=== PATIENT | female | born 1955 | race Caucasian/White ===

== ENCOUNTER 2020-08-24 10:47 | Outpatient (NON) | payer OTHER, SELFPAY ==
[2020-08-24 23:56] LABS: SARS-CoV-2 RNA PCR Negative
== END 2020-08-24 10:48 ==
PROVIDERS: PCP Student in an Organized Health Care Education/Training Program; Visit Provider Student in an Organized Health Care Education/Training Program
DX: Z20.828 Contact with and (suspected) exposure to other viral communicable diseases (principal); R05 Cough; R53.83 Other fatigue
CPT/HCPCS: 87635; C9803; U0003

== ENCOUNTER 2020-08-25 13:31 | Outpatient (CLI) | payer OTHER, SELFPAY ==
--- NOTE | ~2020-08-25 | US_ITS ---
EXAMINATION: US right upper quadrant DATE: 08/25/2020 14:11 INDICATION: Right upper quadrant abdominal pain. TECHNIQUE: Multiple grayscale and Doppler ultrasound images of the abdomen were obtained. COMPARISON: None FINDINGS: The visualized portions of the head, body, and tail of the pancreas are normal. There is di ffuse hepatic steatosis. No liver surface nodularity. There is normal flow in main portal vein. The g allbladder is normal in size. No gallstones or gallbladder wall thickening. There was no sonographic Amador sign. The common duct is normal and measures 6 mm. IMPRESSION: 1. Diffuse hepatic steatosis. Reviewed, dictated and finalized at location A.
[2020-08-25 14:45] LABS: Hemoglobin 17.2 g/dL (12.0-15.0); Mean Corpuscular HGB Conc 31.9 g/dl (32-36); Mean Corpuscular Hemoglobin 29.2 pg (26-34); Mean Corpuscular Volume 91.7 fl (80-100); Mean Platelet Volume 10.3 fl (7.4-10.4); Platelet Count Result 253 k/mm3 (150-375); Red Blood Count 5.89 M/mm3 (4.2-5.4); Red Cell Distribution Width 13.2 % (11.5-14.5); White Blood Count 20.2 K/mm3 (4.5-10.0)
[2020-08-25 14:56] LABS: Hemoglobin A1C 9.4 % (<5.7)
[2020-08-25 15:00] LABS: Alanine Aminotransferase 23 U/L (4-35); Alkaline Phosphatase 105 U/L (38-126); Anion Gap 6 mmol/L (8-16); Aspartate Amino Transferase 28 U/L (14-36); Bilirubin,Total 0.8 mg/dL (0.2-1.3); Blood Urea Nitrogen 17 mg/dL (7-17); Calcium 9.2 mg/dL (8.4-10.2); Carbon Dioxide 27 mmol/L (22-30); Chloride 104 mmol/L (98-107); Cholesterol 160 mg/dL (0-200); Estimated Glomerular Filt Rate > 60; Glucose 189 mg/dL (65-105); HDL Direct 42 mg/dL; Potassium 4.2 mmol/L (3.4-5.0); Sodium 137 mmol/L (137-145); Triglycerides 108 mg/dL (<150)
[2020-08-25 15:11] LABS: LDL Cholesterol Direct 104 mg/dL
[2020-08-25 16:16] LABS: Eosinophils Percent Manual 2 % (0-4); Lymphocytes Absolute Manual 8.28 K/mm3 (1.1-4.5); Monocytes Percent Manual 1 % (3-9); Neutrophils Percent Manual 56 % (46-73); Platelet Estimate Adequate (Adequate); Total Cells Counted 100
[2020-08-25 16:38] LABS: Vitamin D 25 Hydroxy 20.4 ng/mL
[2020-08-25 17:40] LABS: Free T4 Free Thyroxine Reflex 1.39 ng/dL (0.78-2.19)
[2020-08-25 19:16] LABS: Total Triiodothyronine (T3) 1.37 NG/ML (0.97-1.69)
[2020-08-26 02:38] LABS: Microalbumin Urine Random 48.4 mg/L (0-16.7)
[2020-08-26 02:50] LABS: Creatinine Urine 347.1 mg/dL; MALB Creatinine Ratio 13.9 mg/g (0-30)
== END 2020-08-25 13:32 | disposition home or self-care (01) ==
PROVIDERS: PCP Student in an Organized Health Care Education/Training Program; Visit Provider Student in an Organized Health Care Education/Training Program
DX: R10.11 Right upper quadrant pain (principal); Z13.220 Encounter for screening for lipoid disorders; E11.9 Type 2 diabetes mellitus without complications; K76.0 Fatty (change of) liver, not elsewhere classified; Z79.4 Long term (current) use of insulin; Z13.29 Encounter for screening for other suspected endocrine disorder; Z13.228 Encounter for screening for other metabolic disorders; Z13.0 Encounter for screening for diseases of the blood and blood-forming organs and certain disorders involving the immune mechanism
CPT/HCPCS: 36415; 76705; 80053; 80061; 82043; 82306; 83036; 84439; 84443; 84480; 85025

== ENCOUNTER 2021-01-23 14:35 | Outpatient (CLI) | payer OTHER, SELFPAY ==
--- NOTE | ~2021-01-23 | CT_ITS ---
EXAMINATION: CT brain wo con EXAM DATE: 01/23/2021 14:58 INDICATION: New onset headache at the vertex. History CLL. Dizziness. Blurry vision. Nausea. TECHNIQUE: Spiral CT of the head was performed without contrast. Axial, coronal and sagittal images were reviewed. The dose-length product (DLP) for this examination was 529.67 mGy-cm. The exposure w as tailored according to patient size, and iterative reconstruction (ASIR) was used as additional dos e reduction technique. There is no prior study for comparison. FINDINGS: There is no acute intraparenchymal hemorrhage. No evidence of intraparenchymal brain mass lesion. No evidence of acute infarction. Please note that initial head CT has limited sensitivity f or small or acute infarctions. There is mild periventricular and subcortical hypodensity, nonspecific but probably related to small vessel ischemic disease. There is intracranial carotid arteriosclero sis. There are no extra-axial collections. There is no mass effect or midline shift. The orbits ar e unremarkable. Soft tissue is unremarkable. The visualized sinuses and mastoid air cells are well aerated. IMPRESSION: 1. No acute intracranial findings. 2. Chronic age related findings. Reviewed, dictated and finalized at location A.
[2021-01-23 15:39] LABS: Basophils Absolute Auto 0.1 K/mm3 (0.0-0.1); Basophils Percent Auto 0.5 % (0.2-1.2); Eosinophils Absolute Auto 0.8 K/mm3 (0-0.3); Hematocrit 50.1 % (37.0-47.0); Hemoglobin 16.4 g/dL (12.0-15.0); Immature Granulocyte Absolute 0.05 K/mm3 (0.00-0.031); Immature Granulocyte Percent A 0.3 % (0-0.5); Lymphocytes Absolute Auto 9.99 K/mm3 (0.9-3.2); Lymphocytes Percent Auto 53.8 % (18.3-44.2); Mean Corpuscular HGB Conc 32.7 g/dl (32-36); Mean Corpuscular Hemoglobin 28.7 pg (26-34); Mean Corpuscular Volume 87.6 fl (80-100); Mean Platelet Volume 10.5 fl (7.4-10.4); Monocytes Absolute Auto 0.9 K/mm3 (0.1-0.6); Monocytes Percent Auto 4.6 % (2.6-8.5); Neutrophils Absolute Auto 6.9 K/mm3 (1.3-6.7); Neutrophils Percent Auto 36.8 % (45.5-73.1); Platelet Count Result 297 k/mm3 (150-375); Red Blood Count 5.72 M/mm3 (4.2-5.4); Red Cell Distribution Width 13.4 % (11.5-14.5); White Blood Count 18.6 K/mm3 (4.5-10.0)
[2021-01-23 15:51] LABS: Alanine Aminotransferase 16 U/L (4-35); Albumin Level 3.9 g/dL (3.5-5.1); Alkaline Phosphatase 103 U/L (38-126); Anion Gap 7 mmol/L (8-16); Aspartate Amino Transferase 22 U/L (14-36); Bilirubin,Total 0.4 mg/dL (0.2-1.3); Blood Urea Nitrogen 11 mg/dL (7-17); Calcium 8.8 mg/dL (8.4-10.2); Carbon Dioxide 26 mmol/L (22-30); Chloride 104 mmol/L (98-107); Estimated Glomerular Filt Rate > 60; Glucose 145 mg/dL (65-105); Potassium 3.8 mmol/L (3.4-5.0); Sodium 137 mmol/L (137-145)
[2021-01-23 16:18] LABS: Erythrocyte Sedimentation Rate 4 mm/hr (0-20)
== END 2021-01-23 14:36 | disposition home or self-care (01) ==
PROVIDERS: PCP Student in an Organized Health Care Education/Training Program; Visit Provider Student in an Organized Health Care Education/Training Program
DX: R51.9 Headache, unspecified (principal); E11.9 Type 2 diabetes mellitus without complications; Z79.4 Long term (current) use of insulin
CPT/HCPCS: 36415; 70450; 80053; 83036; 85025; 85652

== ENCOUNTER 2021-06-25 08:18 | Emergency (ER) | payer OTHER, SELFPAY ==
--- NOTE | ~2021-06-25 | XR_ITS ---
XR abdomen/kub 1V DATE: 06/25/2021 09:06 INDICATION: Vomiting and diarrhea TECHNIQUE: AP view COMPARISON: 08/20/2017 KUB 08/25/2020 right upper quadrant abdominal ultrasound FINDINGS: No evidence of bowel obstruction. The psoas shadows are intact. No visceromegaly. No signif icant abnormal calcification. IMPRESSION: No significant abnormality Reviewed, dictated and finalized at Location A. Reviewed, dictated and finalized at location A. IMPRESSION: No significant abnormality
[2021-06-25 08:28] VITALS: BP 148/85; PULSE 66; RESP 18; TEMP 36.2; O2SAT 97
[2021-06-25 08:30] VITALS: BP 148/85; PULSE 66; RESP 18; TEMP 36.2; O2SAT 97
--- NOTE | 2021-06-25 08:46 | ED.GENADULT ---
HPI - General Adult General Chief complaint: Nausea/Vomiting/Diarrhea Stated complaint: headache/ nausea /vomiting Time Seen by Provider: 06/25/21 08:46 Source: patient and RN notes reviewed Mode of arrival: ambulatory Limitations: no limitations History of Present Illness HPI narrative: 65-year-old female presents with complaints of nausea, vomiting, diarrhea, decreased appetite, and intermittent headache (not the worst of her life) for 1 day. ?Mouna reports approximately noon on 06/24/21 she started having nausea, vomiting, diarrhea, decreased appetite, and intermittent headache which is consistent now. ?Attempted to increase fluids without relief. ?Nausea with 2 episodes of emesis this morning and 1 on 06/24/21 without blood, last episode today at 07:00 AM. ?Diarrhea 3 episodes today and 4 episodes on 06/24/21 without blood, last today at 04:00. ?No abdominal pain or cramping. ?Exacerbating factors consist of eating and drinking. Denies fever or chills. ?Denies dizziness, back pain, and dysuria. ?Rhinorrhea and congestion. ?Remains active. ?The patient reports she has not been diagnosed with COVID-19. ?The patient reports she received 1 [email or web address] COVID-19 vaccine, awaiting 2 one in a week. ?The patient reports she is not waiting for the results of a COVID-19 lab test. ?The patient reports she does not have weakness, fatigue, or myalgia. ?The patient reports she does not have a new or worsening cough or shortness of breath. ?Denies chest pain. ?The patient reports she does not have any loss of taste or smell and sore throat. ?Denies recent traveling. ?Denies concerns for COVID-19 or exposures. ?At this time, the patient is not suspected of having COVID-19.?? Some parts of this dictation were generated by voice recognition software and may contain typographical and/or grammatical inaccuracies. Related Data Home Medications Medication Instructions Recorded Confirmed bupropion HCl 300 mg PO DAILY 06/25/21 06/25/21 fluoxetine 20 mg PO DAILY 06/25/21 06/25/21 insulin glargine U-300 conc 1 unit SUBCUT DAILY 06/25/21 06/25/21 [Toujeo Max U-300 SoloStar] pregabalin 75 mg PO DAILY 06/25/21 06/25/21 Allergies Allergy/AdvReac Type Severity Reaction Status Date / Time cephalexin Allergy Unknown Difficulty Verified 06/25/21 08:40 Breathing Penicillins Allergy Unknown Rash Verified 06/25/21 08:23 CEPHALEXIN MONOHYDRATE Allergy Mild Difficulty Uncoded 06/25/21 08:40 Breathing Review of Systems Review of Systems: CONSTITUTIONAL: Denies fever, chills, sweats. EYES: Denies visual changes, redness, discharge. ENT: Complains of rhinorrhea, congestion. Denies sore throat, otalgia. CARDIOVASCULAR: Denies chest pain, palpitations, edema. RESPIRATORY: Denies dyspnea, wheezing, cough. GASTROINTESTINAL: Denies abdominal pain, vomiting. Complains of diarrhea, nausea, and decreased appetite. GENITOURINARY: Denies dysuria, hematuria, abnormal discharge. SKIN: Denies rash or itching. MUSCULOSKELETAL: Denies acute back pain, joint pain, or myalgia. NEUROLOGIC: Denies numbness or focal weakness. PSYCHIATRIC: Denies anxiety or depression. All systems reviewed & are unremarkable except as noted in HPI and below. [facility] Past Medical History Medical History (Updated 06/25/21 @ 09:34 by NIRALI Rodriguez) Anxiety CLL (chronic lymphocytic leukemia) Depression Diabetes Hypertension Surgical History Surgical History (Updated 06/25/21 @ 10:08 by NIRALI Rodriguez) History of carpal tunnel surgery History of foot surgery RT tarsal tunnel surgery History of hysterectomy History of surgery on upper extremity ulnar nerve release History of tonsillectomy Family History Family History Father Hypertension Family history of elevated blood lipids Family history of diabetes mellitus in first degree relative Patient's father is Mother Family history of d
[2021-06-25] MEDS: ONDANSETRON HCL ODT 4 MG TABLET PO (09:12)
[2021-06-25 09:18] LABS: Glucose Point of Care 134 mg/dl (65-105)
--- NOTE | 2021-06-25 09:38 | PCDIET ---
0915- accucheck is 134mg/dL
[2021-06-25] MEDS: ONDANSETRON INJ 4 MG/2 ML VIAL IM (09:42)
[2021-06-27 01:23] LABS: SARS-CoV-2 RNA PCR Negative
== END 2021-06-25 09:58 | disposition home or self-care (01) ==
PROVIDERS: Emergency Provider Nurse Practitioner Family; PCP Student in an Organized Health Care Education/Training Program
DX: K52.9 Noninfective gastroenteritis and colitis, unspecified (principal); Z20.822 Contact with and (suspected) exposure to COVID-19; F41.9 Anxiety disorder, unspecified; F32.9 Major depressive disorder, single episode, unspecified; E11.9 Type 2 diabetes mellitus without complications; I10 Essential (primary) hypertension; C91.10 Chronic lymphocytic leukemia of B-cell type not having achieved remission
CPT/HCPCS: 74018; 81003; 82948; 96372; 99213; A9270; C9803; G0463; J2405; U0003; U0005

== ENCOUNTER 2024-02-26 12:24 | Outpatient (CLI) | payer MEDICARE, SELFPAY ==
--- NOTE | ~2024-02-26 | DEXA_ITS ---
Bone Density Report Name: NEWTON WILLIS Age: 68 Sex: Female Ethnicity: White Date of : 1955 Indication: postmenopausal; screening for osteoporosis; parental hip fracture; hysterectomy; Referring Provider: Alix, Gaston Study: Bone densitometry was performed. Exam Date: February 26, 2024 Accession number: [id number] Bone Density: Region BMD T-score Z-score Classification AP Spine (L1, L2, L3) 0.978 -0.4 1.5 Normal Femoral Neck (Left) 0.626 -2.0 -0.4 Osteopenia Total Hip (Left) 0.946 0.0 1.3 Normal Femoral Neck (Right) 0.637 -1.9 -0.3 Osteopenia Total Hip (Right) 0.938 0.0 1.3 Normal Total Hip Mean 0.942 0.0 1.3 Normal World Health Organization criteria for BMD impression classify patients as: Normal (T-score at or above -1.0), Osteopenia (T-score between -1.0 and -2.5), or Osteoporosis (T-score at or below -2.5). 10-year Fracture Risk(1): Major Osteoporotic Fracture 17% Hip Fracture 1.7% Reported Risk Factors: [place] (), Neck BMD=0.626, BMI=39.3, parental fracture (1) FRAX(R) Version 3.08. Fracture probability calculated for an untreated patient. Fracture probability may be lower if the patient has received treatment. Clinical Information Provided by Patient: Parent has had a hip fracture Has used the following medications: Vitamin D Has the following medical conditions: Hysterectomy, CLL cancer currently, no treatment Patient maximum height was 62.5 Menopause Age: 31 No regular weight bearing exercise Drinks caffeinated beverages Onset of menses at age 15.5 Number of children 0 Impression: The patient has low bone mass, based on the Left Femoral Neck T-score. The patient has an estimated ten-year risk of hip fracture of 1.7% and an estimated ten-year risk of major fracture of 17%, based on the WHO FRAX algorithm. The patient has risk factors, including: parental hip fracture. Discussion: BONE DENSITY IS LOW AT ONE OR MORE SKELETAL SITES. This patient's lowest T-score is low at one or more skeletal sites. It meets the World Health Organization's (WHO) criteria for ?low bone mass? (T-score between -1.0 and -2.5). The patient's 10-year risk of fracture as calculated by FRAX is less than the threshold where pharmacological therapy is recommended by the National Osteoporosis Foundation (NOF). However, all treatment decisions require clinical judgment and consideration of individual patient factors, including patient preferences, comorbidities, previous drug use, risk factors not captured in the FRAX model (e.g., frailty, falls, vitamin D deficiency, increased bone turnover, interval significant decline in bone density) and possible under or overestimation of fracture risk by FRAX. The patient should follow a healthful lifestyle (good nutrition with adequate calcium and lawson
--- NOTE | ~2024-02-26 | MM_ITS ---
EXAMINATION: MM screening belen BI w eliza HISTORY: Screening mammogram TECHNIQUE: Craniocaudal and mediolateral oblique 3-D tomosynthesis images were obtained and synthetic 2-D images were generated. CAD analysis was submitted and interpreted. COMPARISON: 06/28/2011 bilateral screening mammogram BREAST PARENCHYMAL COMPOSITION: The breasts are almost entirely fatty. FINDINGS: Bilateral circumscribed probable intramammary lymph nodes, more numerous on the left, most present on 06/28/2011. There is no evidence of suspicious mass, calcification, or architectural distor tion to suggest malignancy in either breast. There has been no suspicious interval change. IMPRESSION: 1. No mammographic evidence of malignancy. 2. Recommend routine screening mammography in one year. BI-RADS Category 2: Benign finding(s). Reviewed, dictated and finalized at location A.
== END 2024-02-26 12:25 ==
PROVIDERS: PCP Student in an Organized Health Care Education/Training Program; Visit Provider Student in an Organized Health Care Education/Training Program
DX: Z12.31 Encounter for screening mammogram for malignant neoplasm of breast (principal); Z78.0 Asymptomatic menopausal state; M85.80 Other specified disorders of bone density and structure, unspecified site; M85.852 Other specified disorders of bone density and structure, left thigh; M85.851 Other specified disorders of bone density and structure, right thigh
CPT/HCPCS: 77063; 77067; 77080

== ENCOUNTER 2024-06-16 04:38 | Inpatient (IN) | payer MEDICARE, SELFPAY ==
[2024-06-16 04:45] VITALS: BP 140/97; PULSE 93; RESP 17; TEMP 36.7; O2SAT 97
[2024-06-16 04:50] VITALS: BP 140/97; PULSE 93; RESP 17; TEMP 36.7; O2SAT 97
--- NOTE | 2024-06-16 04:54 | ED.SKABFB ---
HPI - Skin/Abscess/Foreign Bdy General Chief complaint: Skin/Abscess/Foreign Body Stated complaint: skin redness, insect bite on back Time Seen by Provider: 06/16/24 04:45 History of Present Illness HPI narrative: Patient noticed yesterday that she had a painful blister to her right back, she put a Band-Aid on it, and was planning on trying to your doctor this morning when she looked in the mirror and noticed that she had a reddish rash to her chest. No recent medications, foods or other exposures Related Data Home Medications Medication Instructions Recorded Confirmed bupropion HCl 300 mg 24 hr tablet, 300 mg PO DAILY 06/25/21 06/25/21 extended release fluoxetine 20 mg capsule 20 mg PO DAILY 06/25/21 06/25/21 insulin glargine U-300 conc 300 1 unit subcut DAILY 06/25/21 06/25/21 unit/mL (3 mL) subcutaneous pen (Toujeo Max U-300 SoloStar) pregabalin 75 mg capsule 75 mg PO DAILY 06/25/21 06/25/21 Allergies Allergy/AdvReac Type Severity Reaction Status Date / Time cephalexin Allergy Unknown Difficulty Verified 06/16/24 04:52 Breathing Penicillins Allergy Unknown Rash Verified 06/16/24 04:52 CEPHALEXIN MONOHYDRATE Allergy Mild Difficulty Uncoded 06/16/24 04:52 Breathing Review of Systems Review of Systems: CONST: No fever. HEENT: No sore throat C/V: No chest pain RESP: No cough GI: No nausea vomiting : No dysuria. M/S: No joint pain. SKIN: All over body rash, and painful blister that had popped on her right back NEURO: [No headache or focal numbness or weakness] PSYCH: [No depression] [facility] Past Medical History Medical History (Updated 06/16/24 @ 07:01 by Klaudia Sen MD) Anxiety CLL (chronic lymphocytic leukemia) Depression Diabetes Hypertension Surgical History Surgical History (Updated 06/25/21 @ 10:08 by NIRALI Rodriguez) History of carpal tunnel surgery History of foot surgery RT tarsal tunnel surgery History of hysterectomy History of surgery on upper extremity ulnar nerve release History of tonsillectomy Family History Family History Father Hypertension Family history of elevated blood lipids Family history of diabetes mellitus in first degree relative Patient's father is Mother Family history of diabetes mellitus in first degree relative Sibling Family history of coronary artery disease, Onset Age: 55 Patient's brother is Social History Social History (Updated 06/25/21 @ 09:08 by NIRALI Rodriguez) Smoking status: Never smoker Tobacco type: cigarettes Second hand tobacco smoke exposure: No Alcohol intake: never Substance use: never Substance use type: does not use Living arrangements: alone Additional living arrangements comments: spouse in February of 2021 Occupation/Education: occupation Gender identity (if verbalized by the patient): Female Sexual Orientation (if Verbalized by the Patient): Straight or Heterosexual Exam Narrative: EXAMINATION OF ORGAN SYSTEMS/BODY AREAS: Constitutional: Vital signs per nursing GENERAL:[No acute distress, non-toxic appearing.] HEAD: Normal with no signs of head trauma. EYES: EOMI, conjunctiva normal ENT: No ulcers to membranes LUNGS: Nonlabored breathing. HEART: [Regular rate and rhythm] ABD: [Soft], [nontender to palpation] EXT: Normal range of motion SKIN: 7cm blister inside 14cm area of induration/erythema/tenderness. Diffuse erythematous rash over entire trunk and upper bilateral legs NEURO: [Alert and oriented x 3. No gross focal sensory or strength deficits.] PSYCH: Normal affect Course Vital Signs Vital signs: Vital Signs Temperature 98.1 F 06/16/24 04:45 Pulse Rate 93 06/16/24 04:45 Respiratory Rate 17 06/16/24 04:45 Blood Pressure 140/97 H 06/16/24 04:45 Pulse Oximetry 97 06/16/24 04:45 Oxygen Delivery Room Air 06/16/24
[2024-06-16] MEDS: CLINDAMYCIN 600 MG/D5W 50 ML 600 MG/50 ML PIGGYBACK 100 MG IVPB (05:37)
[2024-06-16 05:43] LABS: Basophils Percent Auto 0.2 % (0.2-1.2); Eosinophils Percent Auto 5.1 % (0-4.4); Hematocrit 48.7 % (37.0-47.0); Hemoglobin 15.7 g/dL (12.0-15.0); Immature Granulocyte Percent A 0.5 % (0-0.5); Lymphocytes Absolute Auto 4.51 K/mm3 (0.9-3.2); Mean Corpuscular HGB Conc 32.2 g/dl (32-36); Mean Corpuscular Hemoglobin 29.3 pg (26-34); Mean Corpuscular Volume 90.9 fl (80-100); Mean Platelet Volume 10.4 fl (7.4-10.4); Monocytes Absolute Auto 0.7 K/mm3 (0.1-0.6); Monocytes Percent Auto 3.6 % (2.6-8.5); Neutrophils Absolute Auto 13.3 K/mm3 (1.3-6.7); Neutrophils Percent Auto 67.6 % (45.5-73.1); Platelet Count Result 226 k/mm3 (150-375); Red Blood Count 5.36 M/mm3 (4.2-5.4); White Blood Count 19.6 K/mm3 (4.5-10.0)
[2024-06-16 05:55] LABS: Lactic Acid Reflex 1.7 mmol/L (0.7-2.0)
[2024-06-16 05:58] LABS: Alanine Aminotransferase 15 U/L (6-35); Albumin Level 4.1 g/dL (3.5-5.1); Alkaline Phosphatase 88 U/L (38-126); Anion Gap 10 mmol/L (4-12); Aspartate Amino Transferase 19 U/L (14-36); Bilirubin,Total 1.2 mg/dL (0.2-1.3); Blood Urea Nitrogen 12 mg/dL (7-17); Calcium 8.5 mg/dL (8.4-10.2); Carbon Dioxide 27 mmol/L (22-30); Chloride 100 mmol/L (98-107); Estimated CRCL calculation 54 ml/min; Estimated Glomerular Filt Rate 55; Glucose 165 mg/dL (65-110); Potassium 3.7 mmol/L (3.4-5.0); Sodium 137 mmol/L (137-145)
[2024-06-16 06:07] LABS: CRP 11.9 mg/dL (<1.0)
[2024-06-16 06:11] LABS: Procalcitonin 0.3 ng/mL
[2024-06-16 06:21] LABS: Erythrocyte Sedimentation Rate 13 mm/hr (0-20)
[2024-06-16 06:22] VITALS: BP 121/84; PULSE 77; RESP 18; O2SAT 100
[2024-06-16] MEDS: AZTREONAM 2 GM in SODIUM CHLORIDE 0.9% IV 100 ML 200 ML IVPB ×2 (07:10→13:42)
[2024-06-16 08:06] VITALS: BP 145/67; RESP 18; O2SAT 100
--- NOTE | 2024-06-16 08:15 | PC.NURSE ---
This patient, Mouna Lynch, was admitted to [facility] Surg Room 317-01. Patient/family oriented to hospital policies and general routines including ID bracelet, bed and alarms, visiting hours, pain management, procedures, bathroom and other care routines, personal items, smoking policy, room service/diet, and visiting hours. Information on how to activate the Rapid Response Team has been discussed. Patient/Family are encouraged to report perceived risks to care and to ask questions if they do not understand what they are told or what they should do.
[2024-06-16 08:18] VITALS: BMI 39.4
[2024-06-16] MEDS: VANCOMYCIN 1,500 MG/NS 500 ML 1,500 MG/500 ML BAG 250 MG IVPB (10:19)
--- NOTE | 2024-06-16 11:23 | PM.IMHP ---
H&P: HPI History of Present Illness Date/Time: 06/16/24 11:23 Chief Complaint: Skin redness, insect bite on back Narrative: This is a 68-year-old female with a significant past medical history of anxiety, CLL, depression, diabetes, hypertension who presented to the hospital with painful blister to her right back which is likely an insect bite and noticed a red rash that was wrapping around from her back to her chest/ abdomen. Patient states that she noticed some pain and burning yesterday to her back and the area was red. She does not recall being bit by any specific bug/spider. She denies being bit by a mosquito or been around wooded areas for ticks. She states in the middle of the night last night she noticed some redness to her chest and felt her back again where she felt a blister formed. When she woke up she noticed that the redness extended from her back to her abdomen chest and upper arms and that is when she decided to come to the ED for further evaluation. Patient reports erythema, warmth to her right lower back, blister that had popped through the night. Patient denies any fever, chills, nausea, vomiting, diarrhea, chest pain, shortness a breath, abdominal pain. On examination her redness extends from her back to her abdomen, upper arms and chest. Workup in the hospital include labs which showed a white blood cell count of 19.6, hemoglobin 15.7, ESR 13, EGFR 55, lactic acid was normal at 1.7, liver enzymes are normal, C reactive protein 11.9, procalcitonin 0.3. Blood cultures were obtained and are pending. Patient was given Aztreonam, vancomycin, and clindamycin while in the ED. Review of Systems Review of Systems: All systems reviewed & are unremarkable except as noted in HPI and below Constitutional: Constitutional: Reports as per HPI and Reports no additional constitutional complaints Eyes: Eyes: Reports as per HPI and Reports no additional eye complaints ENT: Reports system reviewed and no additional complaints, except as documented and Reports as per HPI Cardiovascular: Cardiovascular: Reports as per HPI and Reports no additional cardiovascular complaints Respiratory: Respiratory: Reports as per HPI and Reports no additional respiratory complaints Gastrointestinal: Gastrointestinal: Reports as per HPI and Reports no additional gastrointestinal complaints Genitourinary: Genitourinary: Reports no additional female genitourinary complaints and Reports as per HPI Musculoskeletal: Musculoskeletal: Reports no additional musculoskeletal complaints and Reports as per HPI Integumentary/Breasts: Skin/Breast: Reports system reviewed and no additional complaints, except as docu and Reports as per HPI Neurologic: Reports system reviewed and no additional complaints, except as documented and Reports as per HPI Psychiatric: Psychiatric: Reports no additional psychiatric complaints and Reports as per HPI [facility] Past Medical History Medical History (Updated 06/16/24 @ 11:40 by Anne Hawk APRN) Anxiety CLL (chronic lymphocytic leukemia) Depression Diabetes Hypertension Surgical History Surgical History History of carpal tunnel surgery History of foot surgery RT tarsal tunnel surgery History of hysterectomy History of surgery on upper extremity ulnar nerve release History of tonsillectomy Family History Family History Father Family history of elevated blood lipids Family history of diabetes mellitus in first degree relative Patient's father is Hypertension Mother Family history of diabetes mellitus in first degree relative Sibling Patient's brother is Family history of coronary artery disease, Onset Age: 55 Sibling Heart disease Patient's brother is Social History Social History Smo
[2024-06-16] MEDS: HYDROcodone/acetaminophen (*CRX) 5-325 MG TABLET 1 TAB PO ×3 (11:45→22:53)
[2024-06-16 11:54] LABS: Glucose Point of Care 120 mg/dl (65-105)
[2024-06-16 13:56] VITALS: BP 132/49; PULSE 71; RESP 18; TEMP 36.7; O2SAT 94
[2024-06-16] MEDS: ceFAZolin 1 GM/NS 50 ML 1 GM/50 ML BAG IVPB ×2 (14:07→21:42)
[2024-06-16 16:27] LABS: Glucose Point of Care 160 mg/dl (65-105)
[2024-06-16] MEDS: methylPREDNISolone SOD SUCC 125 MG VIAL 60 MG IV PUSH ×2 (17:01→23:29)
[2024-06-16 19:45] VITALS: BP 140/50; PULSE 77; RESP 18; TEMP 36.9; O2SAT 95
[2024-06-16 20:28] LABS: Glucose Point of Care 237 mg/dl (65-105)
[2024-06-16] MEDS: INSULIN ASPART (*BKC) 100 UNITS/ML SUB-Q (21:43)
[2024-06-17] MEDS: methylPREDNISolone SOD SUCC 125 MG VIAL 60 MG IV PUSH ×2 (05:28→17:56)
[2024-06-17] MEDS: ceFAZolin 1 GM/NS 50 ML 1 GM/50 ML BAG IVPB ×3 (05:33→21:03)
[2024-06-17 05:35] VITALS: BP 148/73; PULSE 71; RESP 18; TEMP 36.8; O2SAT 98
[2024-06-17] MEDS: HYDROcodone/acetaminophen (*CRX) 5-325 MG TABLET 1 TAB PO ×2 (06:02→12:45)
[2024-06-17 07:06] LABS: Basophils Absolute Auto 0.1 K/mm3 (0.0-0.1); Basophils Percent Auto 0.3 % (0.2-1.2); Eosinophils Percent Auto 0.1 % (0-4.4); Hematocrit 43.1 % (37.0-47.0); Hemoglobin 13.7 g/dL (12.0-15.0); Immature Granulocyte Absolute 0.18 K/mm3 (0.00-0.031); Lymphocytes Absolute Auto 3.17 K/mm3 (0.9-3.2); Mean Corpuscular HGB Conc 31.8 g/dl (32-36); Mean Corpuscular Hemoglobin 29.1 pg (26-34); Mean Corpuscular Volume 91.5 fl (80-100); Mean Platelet Volume 10.7 fl (7.4-10.4); Monocytes Absolute Auto 0.6 K/mm3 (0.1-0.6); Monocytes Percent Auto 3.1 % (2.6-8.5); Neutrophils Absolute Auto 14.7 K/mm3 (1.3-6.7); Neutrophils Percent Auto 78.5 % (45.5-73.1); Platelet Count Result 205 k/mm3 (150-375); Red Blood Count 4.71 M/mm3 (4.2-5.4); Red Cell Distribution Width 13.7 % (11.5-14.5); White Blood Count 18.7 K/mm3 (4.5-10.0)
[2024-06-17 07:15] LABS: Alanine Aminotransferase 13 U/L (6-35); Albumin Level 3.3 g/dL (3.5-5.1); Alkaline Phosphatase 77 U/L (38-126); Anion Gap 7 mmol/L (4-12); Aspartate Amino Transferase 18 U/L (14-36); Bilirubin,Total 0.4 mg/dL (0.2-1.3); Blood Urea Nitrogen 13 mg/dL (7-17); Calcium 7.8 mg/dL (8.4-10.2); Carbon Dioxide 27 mmol/L (22-30); Chloride 102 mmol/L (98-107); Estimated CRCL calculation 77 ml/min; Estimated Glomerular Filt Rate > 60; Glucose 231 mg/dL (65-110); Sodium 136 mmol/L (137-145)
[2024-06-17 08:00] VITALS: PULSE 71; RESP 18; O2SAT 98
[2024-06-17] MEDS: buPROPion HCL XL (24 HR) 150 MG TABCR 300 MG PO (09:04)
[2024-06-17] MEDS: FLUoxetine HCL 20 MG CAPSULE PO (09:04)
[2024-06-17] MEDS: PREGABALIN (*CRX) 75 MG CAPSULE PO (09:04)
[2024-06-17] MEDS: INSULIN ASPART (*BKC) 100 UNITS/ML SUB-Q ×3 (09:05→21:06)
[2024-06-17] MEDS: VANCOMYCIN 1,500 MG/NS 500 ML 1,500 MG/500 ML BAG 250 MG IVPB (09:07)
[2024-06-17] MEDS: ENOXAPARIN 40 MG/0.4 ML SYRINGE SUB-Q (09:08)
--- NOTE | 2024-06-17 12:46 | P.PNIM_ITS ---
Progress Note: A&P Assessment and Plan (1) Cellulitis: Code(s): L03.90 - Cellulitis, unspecified Status: Acute Assessment and Plan: 06/16/24: * Extensive erythema noted on back and wraps around to her abdomen and chest and upper arms, blister noted to right lower back with a target appearance. Erythema has a petechiae presentation. * Patient was given Aztreonam, Clindamycin, and Vancomycin in the ER * Will change to Ancef and vancomycin * Blood cultures obtained and are pending * CRP 11.9, ESR normal * WBC 19.6 however patient has CLL and she reports that her white blood cell count is usually 17,000, Procalcitonin 0.3 * blood cultures obtained and are pending * Will start Solu-Medrol 60 mg Q 6 hours for inflammation and extensive erythema 06/17/24: * Significant improvement in erythema with use of Solu-Medrol * Will decrease Solu-Medrol down to 60 mg b.i.d. * Will continue with Ancef and vancomycin IV today and then will switch to Bactrim and doxycycline tomorrow. * Blood culture showing no growth to date on preliminary read * White blood cell count down to 18.7, baseline white count is usually around 17,000 * Potential discharge tomorrow (2) Depression: Code(s): F32.9 - Major depressive disorder, single episode, unspecified Status: Chronic Assessment and Plan: 06/16/24: * Continue Wellbutrin and Prozac 06/17/24: * No change to current treatment (3) Anxiety: Code(s): F41.9 - Anxiety disorder, unspecified Status: Chronic Assessment and Plan: see above (4) Diabetes: Code(s): E11.9 - Type 2 diabetes mellitus without complications Status: Chronic Assessment and Plan: 06/16/24: * Blood sugars ranging 134-165 * Hgb A1C 9.0 * Accu checks AC/HS * Low dose SSI ordered * hypoglycemic protocol in place * Diabetic diet ordered * Not on any home medication 06/17/24: * No change treatment plan (5) Hypertension: Code(s): I10 - Essential (primary) hypertension Status: Chronic Assessment and Plan: 06/16/24: * Blood pressure ranging 121/84 to 148/85 * Patient not currently on any home medications?? * Will continue to monitor for now 06/17/24: * No change to current treatment plan (6) CLL (chronic lymphocytic leukemia): Code(s): C91.10 - Chronic lymphocytic leukemia of B-cell type not having achieved remission Status: Chronic Assessment and Plan: 06/16/24: * Patient states she sees Dr. Scott at [facility] in [place] is currently not on any active treatment. She has been stage 0 for the last 6 years and is mon itored on a regular basis * White blood cell count usually around 17,000 from the CLL 06/17/24: * No change Time Spent With Patient Time with patient: 25 - 35 minutes Subjective Date/time seen: 06/17/24 12:46 Interval history: Interval history: This is a 68-year-old female with a significant past medical history of anxiety, CLL, depression, diabetes, hypertension who presented to the hospital with painful blister to her right back which is likely an insect bite and noticed a red rash that was wrapping around from her back to her chest/ abdomen. Patient states that she noticed some pain and burning yesterday to her back and the area was red. She does not recall being bit by any specific bug/spider. She denies being bit by a mosquito or been around wooded areas for ticks. She states in the middle of the night last night she noticed some redness to her chest and felt her back again where she felt a blister formed. W
--- NOTE | 2024-06-17 12:46 | PM.IMPN ---
Progress Note: A&P Assessment and Plan (1) Cellulitis: Code(s): L03.90 - Cellulitis, unspecified Status: Acute Assessment and Plan: 06/16/24: Extensive erythema noted on back and wraps around to her abdomen and chest and upper arms, blister noted to right lower back with a target appearance. Erythema has a petechiae presentation. Patient was given Aztreonam, Clindamycin, and Vancomycin in the ER Will change to Ancef and vancomycin Blood cultures obtained and are pending CRP 11.9, ESR normal WBC 19.6 however patient has CLL and she reports that her white blood cell count is usually 17,000, Procalcitonin 0.3 blood cultures obtained and are pending Will start Solu-Medrol 60 mg Q 6 hours for inflammation and extensive erythema 06/17/24: Significant improvement in erythema with use of Solu-Medrol Will decrease Solu-Medrol down to 60 mg b.i.d. Will continue with Ancef and vancomycin IV today and then will switch to Bactrim and doxycycline tomorrow. Blood culture showing no growth to date on preliminary read White blood cell count down to 18.7, baseline white count is usually around 17,000 Potential discharge tomorrow (2) Depression: Code(s): F32.9 - Major depressive disorder, single episode, unspecified Status: Chronic Assessment and Plan: 06/16/24: Continue Wellbutrin and Prozac 06/17/24: No change to current treatment (3) Anxiety: Code(s): F41.9 - Anxiety disorder, unspecified Status: Chronic Assessment and Plan: see above (4) Diabetes: Code(s): E11.9 - Type 2 diabetes mellitus without complications Status: Chronic Assessment and Plan: 06/16/24: Blood sugars ranging 134-165 Hgb A1C 9.0 Accu checks AC/HS Low dose SSI ordered hypoglycemic protocol in place Diabetic diet ordered Not on any home medication 06/17/24: No change treatment plan (5) Hypertension: Code(s): I10 - Essential (primary) hypertension Status: Chronic Assessment and Plan: 06/16/24: Blood pressure ranging 121/84 to 148/85 Patient not currently on any home medications?? Will continue to monitor for now 06/17/24: No change to current treatment plan (6) CLL (chronic lymphocytic leukemia): Code(s): C91.10 - Chronic lymphocytic leukemia of B-cell type not having achieved remission Status: Chronic Assessment and Plan: 06/16/24: Patient states she sees Dr. Scott at [facility] in [place] is currently not on any active treatment. She has been stage 0 for the last 6 years and is monitored on a regular basis White blood cell count usually around 17,000 from the CLL 06/17/24: No change Time Spent With Patient Time with patient: 25 - 35 minutes Subjective Date/time seen: 06/17/24 12:46 Interval history: Interval history: This is a 68-year-old female with a significant past medical history of anxiety, CLL, depression, diabetes, hypertension who presented to the hospital with painful blister to her right back which is likely an insect bite and noticed a red rash that was wrapping around from her back to her chest/ abdomen. Patient states that she noticed some pain and burning yesterday to her back and the area was red. She does not recall being bit by any specific bug/spider. She denies being bit by a mosquito or been around wooded areas for ticks. She states in the middle of the night last night she noticed some redness to her chest and felt her back again where she felt a blister formed. When she woke up she noticed that the redness extended from her back to her abdomen chest and upper arms and that is when she decided to come to the ED for further evaluation. Patient reports erythema, warmth to her right lower back, blister that had popped through the night. Patient denies any fever, chills, nausea, vomiting, diarrhea, chest pain, shortness a breath, abdominal pain. On examination her redness extends from her back to her abdom
[2024-06-17 14:34] VITALS: BP 134/54; PULSE 72; RESP 18; TEMP 36.4; O2SAT 93
[2024-06-17 16:45] LABS: Glucose Point of Care 324 mg/dl (65-105)
[2024-06-17 21:25] LABS: Glucose Point of Care 261 mg/dl (65-105)
[2024-06-17 21:45] VITALS: BP 124/60; PULSE 74; RESP 18; TEMP 36.4; O2SAT 96
[2024-06-18] MEDS: VANCOMYCIN 1,500 MG/NS 500 ML 1,500 MG/500 ML BAG 250 MG IVPB (03:39)
[2024-06-18 06:05] VITALS: BP 128/86; PULSE 71; RESP 18; TEMP 36.6; O2SAT 97
[2024-06-18 06:36] LABS: Basophils Absolute Auto 0.1 K/mm3 (0.0-0.1); Basophils Percent Auto 0.4 % (0.2-1.2); Hematocrit 41.3 % (37.0-47.0); Immature Granulocyte Absolute 0.44 K/mm3 (0.00-0.031); Immature Granulocyte Percent A 1.6 % (0-0.5); Lymphocytes Absolute Auto 5.91 K/mm3 (0.9-3.2); Mean Corpuscular HGB Conc 31.5 g/dl (32-36); Mean Corpuscular Hemoglobin 28.9 pg (26-34); Mean Corpuscular Volume 91.8 fl (80-100); Mean Platelet Volume 11.3 fl (7.4-10.4); Monocytes Absolute Auto 1.1 K/mm3 (0.1-0.6); Monocytes Percent Auto 4.1 % (2.6-8.5); Neutrophils Absolute Auto 19.3 K/mm3 (1.3-6.7); Neutrophils Percent Auto 71.9 % (45.5-73.1); Platelet Count Result 229 k/mm3 (150-375); White Blood Count 26.9 K/mm3 (4.5-10.0)
[2024-06-18 06:51] LABS: Alanine Aminotransferase 14 U/L (6-35); Albumin Level 3.2 g/dL (3.5-5.1); Alkaline Phosphatase 74 U/L (38-126); Anion Gap 7 mmol/L (4-12); Aspartate Amino Transferase 21 U/L (14-36); Bilirubin,Total 0.3 mg/dL (0.2-1.3); Blood Urea Nitrogen 20 mg/dL (7-17); Calcium 7.6 mg/dL (8.4-10.2); Carbon Dioxide 27 mmol/L (22-30); Chloride 102 mmol/L (98-107); Estimated CRCL calculation 77 ml/min; Estimated Glomerular Filt Rate > 60; Glucose 281 mg/dL (65-110); Potassium 3.9 mmol/L (3.4-5.0); Sodium 136 mmol/L (137-145)
[2024-06-18 07:23] LABS: Atypical Lymphocytes Present; Platelet Estimate Adequate (Adequate); Schistocytes None Seen
[2024-06-18 08:26] LABS: Glucose Point of Care 255 mg/dl (65-105)
[2024-06-18] MEDS: INSULIN ASPART (*BKC) 100 UNITS/ML SUB-Q (08:42)
[2024-06-18] MEDS: ENOXAPARIN 40 MG/0.4 ML SYRINGE SUB-Q (08:47)
[2024-06-18 08:48] VITALS: RESP 18; O2SAT 97
[2024-06-18] MEDS: SULFAMETHOXAZOLE/TRIMETHOPRIM 800/160 MG DS TABLET 1 TAB PO (08:48)
[2024-06-18] MEDS: DOXYCYCLINE HYCLATE 100 MG TABLET PO (08:48)
[2024-06-18] MEDS: PREGABALIN (*CRX) 75 MG CAPSULE PO (08:48)
[2024-06-18] MEDS: methylPREDNISolone SOD SUCC 125 MG VIAL 60 MG IV PUSH (08:51)
[2024-06-18] MEDS: INSULIN GLARGINE (*BKC) 100 UNITS/ML 12 UNITS SUB-Q (09:18)
--- NOTE | 2024-06-18 10:31 | PM.DS ---
DS: Admitting Diagnosis Discharge Date 06/18/24 Admitting Diagnosis Cellulitis Depression Anxiety Diabetes Hypertension CLL DS: Discharge Diagnosis Discharge Diagnosis (1) Cellulitis: Code(s): L03.90 - Cellulitis, unspecified Status: Acute (2) Depression: Code(s): F32.9 - Major depressive disorder, single episode, unspecified Status: Chronic (3) Anxiety: Code(s): F41.9 - Anxiety disorder, unspecified Status: Chronic (4) Diabetes: Code(s): E11.9 - Type 2 diabetes mellitus without complications Status: Chronic (5) Hypertension: Code(s): I10 - Essential (primary) hypertension Status: Chronic (6) CLL (chronic lymphocytic leukemia): Code(s): C91.10 - Chronic lymphocytic leukemia of B-cell type not having achieved remission Status: Chronic DS: Summary Hospital Course Reason for hospitalization: Cellulitis Depression Anxiety Diabetes Hypertension CLL Hospital Course: This is a 68-year-old female with a significant past medical history of anxiety, CLL, depression, diabetes, hypertension who presented to the hospital with painful blister to her right back which is likely an insect bite and noticed a red rash that was wrapping around from her back to her chest/ abdomen. Patient states that she noticed some pain and burning yesterday to her back and the area was red. She does not recall being bit by any specific bug/spider. She denies being bit by a mosquito or been around wooded areas for ticks. She states in the middle of the night last night she noticed some redness to her chest and felt her back again where she felt a blister formed. When she woke up she noticed that the redness extended from her back to her abdomen chest and upper arms and that is when she decided to come to the ED for further evaluation. Patient reports erythema, warmth to her right lower back, blister that had popped through the night. Patient denies any fever, chills, nausea, vomiting, diarrhea, chest pain, shortness a breath, abdominal pain. On examination her redness extends from her back to her abdomen, upper arms and chest. Workup in the hospital include labs which showed a white blood cell count of 19.6, hemoglobin 15.7, ESR 13, EGFR 55, lactic acid was normal at 1.7, liver enzymes are normal, C reactive protein 11.9, procalcitonin 0.3. Blood cultures were obtained and are pending. Patient was given Aztreonam, vancomycin, and clindamycin while in the ED. Patient was transitioned on to doxycycline and Bactrim oral and will need to finish the course completely. Her erythema has almost completely resolved. She will also be prescribed a Solu-Medrol Dosepak due to steroid use while in the hospital she will need to finish this course is well. then follow up with her primary care physician. Final diagnosis: Cellulitis Status at Discharge Cognitive/behavioral status at discharge: Alert oriented x4 Functional status at discharge: independent ambulation Overall status at discharge: patient is progressing back to baseline Time Spent with Patient Time attestation: Total time spent providing and/or coordinating discharge services: Exam Narrative: General: In no acute distress, well nourished Cardiac: Normal S1 and S2. RRR, No murmur, gallops or friction rubs, peripheral pulses intact. Respiratory: Lungs clear to auscultation, no adventitious lung sounds, currently on room air Gastrointestinal: soft, non-distended, non-tender, normoactive bowel sounds. : voiding without difficulty. Skin: Erythema almost completely resolved, blistered area with Mepilex Neuro: Alert and oriented x4 DS: Data Data Completed and Pending Completed studies during hospitalization: None Pending studies at discharge: None Labs on day of discharge: Labs from last 24 hours 06/18/24 06/18/24 06/17/24 08:19 06:17 20:49 WBC 26.9 H RBC 4.50 Hgb 13.0 Hct 41.3 MCV 91.8
== END 2024-06-18 11:10 | disposition home or self-care (01) | DRG 603 ==
LOC: ANHED 07:01 → ANH3MEDSUR 07:51
PROVIDERS: Admitting Provider Internal Medicine; Emergency Provider Emergency Medicine; PCP Student in an Organized Health Care Education/Training Program; Visit Provider Nurse Practitioner Acute Care
DX: L03.319 Cellulitis of trunk, unspecified (principal); C91.10 Chronic lymphocytic leukemia of B-cell type not having achieved remission; F41.9 Anxiety disorder, unspecified; F32.9 Major depressive disorder, single episode, unspecified; E11.9 Type 2 diabetes mellitus without complications; I10 Essential (primary) hypertension; Z88.0 Allergy status to penicillin; Z79.4 Long term (current) use of insulin
CPT/HCPCS: 36415; 80053; 82948; 83605; 84145; 85025; 85652; 86140; 87040; 96365; 99285; A9270; J0457; J0690; J1650; J1815; J2919; J3370